=== PATIENT | female | born 1955 | race Caucasian/White ===

== ENCOUNTER → 2019-02-18 13:36 | Outpatient (CLI) | payer OTHER, SELFPAY ==
--- NOTE | 2019-02-18 | DI.MG.S_ITS ---
BILATERAL DIGITAL SCREENING MAMMOGRAM 3D/2D WITH CAD: 02/18/2019 CLINICAL: Routine screening. Comparison is made to exams dated: 01/07/2017 mammogram, 11/10/2014 mammogram, and 09/01/2012 mammogram - [facility]. The tissue of both breasts is heterogeneously dense. This may lower the sensitivity of mammography. Current study was also evaluated with a Computer Aided Detection (CAD) system. There is a benign calcification in the left breast. No significant masses, calcifications, or other findings are seen in either breast. There has been no significant interval change. IMPRESSION: There is no mammographic evidence of malignancy. A 1 year screening mammogram is recommended. This exam was interpreted at Station ID: [id number]. NOTE: For mammograms, a report in lay terms will be sent to the patient. Approximately 15% of breast malignancies will not be visualized mammographically. In the management of a palpable breast mass, a negative mammogram must not discourage biopsy of a clinically suspicious lesion. Electronically Signed By: Jaimie lock/penny:02/21/2019 16:57:56 letter sent: Normal Exam ACR BI-RADS Category 2: Benign Finding(s) 3342F
== END ==
PROVIDERS: PCP Family Medicine; Visit Provider Family Medicine
DX: Z12.31 Encounter for screening mammogram for malignant neoplasm of breast (principal)
CPT/HCPCS: 77063; 77067

== ENCOUNTER 2020-02-03 08:46 | Day surgery (SDC) | payer MEDICARE, SELFPAY ==
[2020-02-03 09:05] VITALS: BMI 20.9
[2020-02-03 09:13] VITALS: BP 104/65; PULSE 62; RESP 14; TEMP 37.7; O2SAT 99
[2020-02-03 09:14] VITALS: TEMP 36.3
[2020-02-03] MEDS: SODIUM CHLORIDE 0.9% 1,000 ML 200 ML IV (09:24)
--- NOTE | 2020-02-03 10:08 | PM.HP.1 ---
History of Present Illness History of Present Illness Date Patient Seen: 02/03/20 Time Patient Seen: 10:08 Chief complaint: [facility] [place] Narrative: This is a 64 yo woman with history of polyps found on colonoscopy six years ago, and an incomplete colonoscopy in June of this year, due to poor prep. She denies any melena or hematochezia. Denies unexplained abdominal pain, changes in bowel habit, or unexplained weight loss. Her mother was diagnosed with colon cancer in her early 70's. The patient is a partial quadriplegic. She tolerated conscious sedation with 3mg of versed and 75mcg of fentanyl in June. ROS: Partial quadriplegia, urinary incontinence, neurogenic bladder, Thirteen system review is otherwise negative other than as mentioned below and in HPI. PE: GENERAL: Well groomed and cooperative. Appears stated age. Answers questions promptly and appropriately. Vital signs noted. HENT: Normocephalic, atraumatic. Hearing intact. EYES: Conjunctiva pink, sclera white, no periorbital swelling. CARDIOVASCULAR: Regular rate. No pedal edema. RESPIRATORY: Non-tachypneic, breathing comfortably on room air. GASTROINTESTINAL: Abdomen soft and non-distended GENITALURINARY: No flank tenderness. MUSCULOSKELETAL: Equal tone and mass bilaterally. SKIN: Warm, dry, soft, appropriate color for ethnicity. No other lesions, rashes, or wounds. NEURO: Alert and Oriented X 3. Partial quadriplegia PSYCH: Appropriate affect and mood. Patient History Medical History Neurogenic bladder (Acute) Spinal cord injury (Acute) Wheelchair dependence (Acute) Family & Social History Social History: household members spouse Tobacco & Substance use: Smoking Status Never smoker alcohol intake current alcohol intake frequency 0-2 drinks per day Substance Use Type marijuana Meds Home Medications and Allergies Home Medications Medication Instructions Recorded Confirmed Type baclofen 10 mg PO DAILY 02/03/20 02/03/20 History cholecalciferol (vitamin D3) 25 mcg PO DAILY 02/03/20 02/03/20 History [Vitamin D3] cranberry 400 mg PO DAILY 02/03/20 02/03/20 History gabapentin 300 mg PO BID 02/03/20 02/03/20 History venlafaxine 37.5 mg PO DAILY 02/03/20 02/03/20 History Allergies Allergy/AdvReac Type Severity Reaction Status Date / Time No Known Drug Allergies Allergy Verified 02/03/20 08:57 Exam Vital Signs (past 8 hours): - 02/03/20 09:13 02/03/20 09:14 Temperature 99.8 F H 97.3 F L Pulse Rate 62 Respiratory Rate 14 Blood Pressure 104/65 Pulse Oximetry 99 Oxygen Delivery Method Room Air Assessment & Plan Assessment and plan (1) Personal history of colonic polyps: Status: Acute Assessment & Plan narrative: Risks and benefits of screening colonoscopy and possible polypectomy were discussed with the patient including risk of bleeding, perforation, need for additional procedures, risks of anesthesia. The patient desires to proceed with the colonoscopy procedure. COVID-19 COVID-19 status: Negative Result date/Date tested (Pos, Neg/Pending): 01/31/20 Time Spent With Patient Time with patient: 15-24 minutes Quality VTE Deep Vein Thrombosis/Pulmonary Embolism Present on Admission: No
--- NOTE | 2020-02-03 10:12 | PM.OP.ENDO ---
Operative Date/Time/Diagnoses Date of procedure: 02/03/20 Time of procedure: 10:12 Pre-op diagnosis: Personal history of colon polyps Post-op diagnosis: other (Very tortuous colon, external hemorrhoid remnant tags, otherwise normal exam) Procedure & Clinicians Study performed: Colonoscopy Procedural sedation performed by the endoscopist Indications: Personal history of colon polyps Surgeon: Tarsha Marques Procedure Notes SCOAP/Timeout: Performed Procedure in detail: The patient was brought to the room and placed in left lateral decubitus position with all bony prominences padded. A time-out was performed and then the patient was given procedural sedation starting with 2 mg of Versed and 50 mcg of fentanyl. Vitals were monitored throughout the procedure and remained stable. Once adequately sedated, the procedure was begun. A rectal exam was performed revealing external hemorrhoid remnant tags, normal tone. The colonoscope was then introduced to the rectum and advanced to the cecum in the usual fashion. The colon was very tortuous and required multiple maneuvers in order to safely reach the cecum. The cecum was identified by the appendiceal orifice, the mucosal tri-fold, and the ileocecal valve. The scope was then retracted while rotating side to side and examining each mucosal fold. At the conclusion of the procedure retroflexion was performed and small grade 1-2 internal hemorrhoids without stigmata of bleeding were seen. The scope was then withdrawn from the rectum the procedure was concluded. The patient tolerated the procedure well and was transferred to the PACU in stable condition. Scope withdrawal time: 10 Sedation minutes: 36 Findings: other findings (Very tortuous colon, adequate prep, external hemorrhoid remnant tags) Specimen(s): none sent Complications: none Impression: Tortuous colon, adequate prep, external hemorrhoid remnant tags Post-procedure Recommendations: Colonscopy in 5 years (Due to personal history of colon polyps, and primary relative with colon cancer) Follow up: as needed Disposition: PACU
[2020-02-03] MEDS: fentaNYL 250 MCG/5 ML INJ IV (10:14)
[2020-02-03] MEDS: MIDAZOLAM 5 MG/5 ML VIAL IV (10:15)
--- NOTE | 2020-02-03 11:51 | SUR.PHASEII ---
Assisted pt to dress.
[2020-02-03 11:56] VITALS: BP 89/52; PULSE 65; RESP 20; TEMP 36.7; O2SAT 98
== END 2020-02-03 11:59 | disposition home or self-care (01) ==
PROVIDERS: PCP Family Medicine; Referring Provider Surgery; Visit Provider Surgery
PROC: 0DJD8ZZ Inspection of Lower Intestinal Tract, Via Natural or Artificial Opening Endoscopic (ICD-10-PCS; CPT 45378; principal; 2020-02-03 10:00)
DX: K64.0 First degree hemorrhoids (principal); K64.4 Residual hemorrhoidal skin tags; Z80.0 Family history of malignant neoplasm of digestive organs; Z86.010 Personal history of colon polyps; Z12.11 Encounter for screening for malignant neoplasm of colon
CPT/HCPCS: G0105; 99152; 99153; J2250; J3010

== ENCOUNTER → 2020-04-06 10:22 | Outpatient (CLI) | payer MEDICARE, SELFPAY ==
--- NOTE | 2020-04-06 | DI.US.S_ITS ---
PROCEDURE: US RENAL COMPLETE INDICATIONS: Neuromuscular dysfunction of bladder, unspecified TECHNIQUE: Real-time scanning was performed of the kidneys and bladder, with image documentation. COMPARISON: [facility] Ultrasound, US, US RENAL COMPLETE, 09/02/2018, 14:17. FINDINGS: Kidneys: Kidneys are normal in size. Right kidney measures 9.7 cm long; left kidney measures 10.7 cm long. Right renal cortical thickness is 1.5 cm; left renal cortical thickness is 1.7 cm. Renal cortical echotexture is normal. No hydronephrosis. No suspicious solid mass lesions. Multiple nonobstructing renal stones are seen. Several simple appearing cysts are seen. The largest on the right measures up to 1.4 cm. The largest on the left measures up to 1.1 cm. Bladder: Pre-void bladder volume is 128 mL. Post-void residual not obtained, as the patient is paraplegic. Pre-void images demonstrate no intraluminal masses or stones. The bladder wall is thickened to 6 mm. On pre-void images, both ureteral jets are noted with color Doppler interrogation. (Of note, ureteral jets may not be detectable in up to 25% of cases due to insufficient differences in specific gravity between ureteral and bladder urine). Miscellaneous: No free pelvic fluid. IMPRESSION: The measured bladder volume at the time of the study is 128 cc. No hydronephrosis is seen. Mild bladder wall thickening is seen. Please correlate with underlying cystitis. Multiple nonobstructing bilateral renal stones are seen. Simple appearing bilateral renal cysts can be seen. Dictated by: Adebayo Campbell M.D. on 04/06/2020 at 10:53 Approved by: Adebayo Campbell M.D. on 04/06/2020 at 10:55
== END ==
PROVIDERS: PCP Family Medicine; Referring Provider Urology; Visit Provider Urology
DX: N31.9 Neuromuscular dysfunction of bladder, unspecified (principal); N20.0 Calculus of kidney; N28.1 Cyst of kidney, acquired
CPT/HCPCS: 76770

== ENCOUNTER → 2020-08-07 08:42 | Outpatient (CLI) | payer MEDICARE, SELFPAY | PROVIDERS: PCP Family Medicine; Referring Provider Family Medicine; Visit Provider Family Medicine | DX: Z78.0 Asymptomatic menopausal state (principal) | CPT/HCPCS: 77080 ==

== ENCOUNTER → 2021-02-14 09:18 | Outpatient (CLI) | payer MEDICARE, SELFPAY ==
--- NOTE | 2021-02-14 | DI.MG.S_ITS ---
BILATERAL DIGITAL SCREENING MAMMOGRAM 3D/2D WITH CAD: 02/14/2021 CLINICAL: Routine screening. Comparison is made to exams dated: 02/18/2019 mammogram - [facility], 01/07/2017 mammogram, 11/10/2014 mammogram, and 09/01/2012 mammogram - [facility]. The tissue of both breasts is heterogeneously dense. This may lower the sensitivity of mammography. Current study was also evaluated with a Computer Aided Detection (CAD) system. There is a benign calcification in the left breast. No significant masses, calcifications, or other findings are seen in either breast. There has been no significant interval change. IMPRESSION: BENIGN There is no mammographic evidence of malignancy. A 1 year screening mammogram is recommended. This exam was interpreted at Station ID: [id number]. NOTE: For mammograms, a report in lay terms will be sent to the patient. Approximately 15% of breast malignancies will not be visualized mammographically. In the management of a palpable breast mass, a negative mammogram must not discourage biopsy of a clinically suspicious lesion. Electronically Signed By: Jesse noe/penny:02/14/2021 11:24:03 letter sent: Normal Exam ACR BI-RADS Category 2: Benign Finding(s) 3342F
== END ==
PROVIDERS: PCP Family Medicine; Referring Provider Family Medicine; Visit Provider Family Medicine
DX: Z12.31 Encounter for screening mammogram for malignant neoplasm of breast (principal)
CPT/HCPCS: 77063; 77067

== ENCOUNTER → 2021-10-04 09:19 | Outpatient (CLI) | payer MEDICARE, SELFPAY ==
--- NOTE | 2021-10-04 | DI.US.S_ITS ---
PROCEDURE: US RENAL COMPLETE INDICATIONS: NEUROGENIC BLADDER TECHNIQUE: Real-time scanning was performed of the kidneys and bladder, with image documentation. COMPARISON: [facility], , US RENAL COMPLETE, 04/06/2020, 10:38. FINDINGS: Kidneys: Kidneys are normal in size. Right kidney measures 11.8 cm long; left kidney measures 11.9 cm long. Right renal cortical thickness is 1.3 cm; left renal cortical thickness is 1.6 cm. Renal cortical echotexture is normal. No hydronephrosis. Multiple punctate echogenic foci are noted within the calices suggesting the presence of nonobstructive stones. Bladder: Pre-void bladder volume is 102 mL the patient was unable to void. Pre-void images demonstrate no intraluminal masses or stones. On pre-void images, bilateral ureteral jets are noted with color Doppler interrogation. (Of note, ureteral jets may not be detectable in up to 25% of cases due to insufficient differences in specific gravity between ureteral and bladder urine). Miscellaneous: No free pelvic fluid. IMPRESSION: 1. No hydronephrosis. 2. The patient was unable to void during the procedure. Postvoid residual could not be measured. 3. Multiple echogenic punctate foci within the renal calices raising the suspicion for nonobstructing calculi. Medullary sponge kidney could also be considered in the differential diagnosis. Dictated by: Ramona Tello M.D. on 10/04/2021 at 11:11 Approved by: Ramona Tello M.D. on 10/04/2021 at 11:16
== END ==
PROVIDERS: PCP Family Medicine; Referring Provider Urology; Visit Provider Urology
DX: N31.9 Neuromuscular dysfunction of bladder, unspecified (principal)
CPT/HCPCS: 76770

== ENCOUNTER 2021-10-23 07:26 | Day surgery (SDC) | payer MEDICARE, SELFPAY ==
[2021-10-23] VITALS (7 sets, daily range): BP systolic 87–107; BP diastolic 51–69; PULSE 64–69; RESP 15–24; TEMP 36.2–36.8; O2SAT 94–98; BMI 19.5
--- NOTE | 2021-10-23 | PATH_ITS ---
[facility] Accession Number: [id number] . 01 Material submitted: . colon - RANDOM COLON BIOPSIES . 01 Clinical history: . SDC NONINFECTIVE GASTROINTERITIS AND COLITIS, UNSPECIFIED DIARRHEA, UNSPECIFIED . 01 Diagnosis: Random Colon, Biopsies: Colonic mucosa with mild nonspecific hemorrhage and congestion. No evidence of colitis. MRV 10/25/2021 1338 Local . 01 Comment: While the histologic features are nonspecific, bowel preparation artifact is a consideration. . 01 Electronically signed: . Ashley Magallon MD, Pathologist NPI- [id number] . 01 Gross description: . RANDOM COLON BIOPSIES: Received in formalin are 4 fragment(s) of gill, soft tissue measuring 0.3 x 0.2 x 0.1 cm to 0.1 x 0.1 x 0.1 cm submitted entirely in 1 cassette(s) /CPE 10/24/2021 0905 Local . 01 Pathologist provided ICD-10: R85.7, K52.9, R19.7 . 01 CPT . 885642 Specimen Comment: A courtesy copy of this report has been sent to [phone] Performed at: 01 [facility] [address] [place] [address] [address], [place], [place] [id number] MD Dalton Owusu MD Phone: [phone]
--- NOTE | 2021-10-23 07:41 | SUR.PREOP ---
Patient reported that prep was inadequate. Alix Hameed RN spoke with patient and called Dr. Liam. Orders received.
[2021-10-23] MEDS: FLEETS ENEMA 1 EACH PR (08:05)
--- NOTE | 2021-10-23 08:11 | PM.HP.1 ---
History of Present Illness History of Present Illness Date Patient Seen: 10/23/21 Time Patient Seen: 08:11 Chief complaint: sdc Narrative: I reviewed Dr. Du's recent note from August of this year. Diarrhea has persisted intermittently for the last 5-6 months. Patient History Medical History Neurogenic bladder Spinal cord injury Wheelchair dependence Family & Social History Social History: household members spouse Tobacco & Substance use: Smoking Status Never smoker alcohol intake current alcohol intake frequency 0-2 drinks per day Substance Use Type marijuana Meds Home Medications and Allergies Home Medications Medication Instructions Recorded Confirmed Type baclofen 10 mg tablet 10 mg PO TID 02/03/20 10/23/21 History cholecalciferol (vitamin D3) 25 25 mcg PO DAILY 02/03/20 10/23/21 History mcg (1,000 unit) tablet (Vitamin D3) cranberry 400 mg capsule 400 mg PO DAILY 02/03/20 10/23/21 History gabapentin 300 mg capsule 300 mg PO BID 02/03/20 10/23/21 History venlafaxine 37.5 mg 37.5 mg PO DAILY 02/03/20 10/23/21 History capsule,extended release 24 hr psyllium 500 mg capsule 2,500 g PO BID 10/23/21 10/23/21 History Allergies Allergy/AdvReac Type Severity Reaction Status Date / Time amoxicillin [From Augmentin] AdvReac Mild Diarrhea Verified 10/23/21 08:09 clavulanic acid AdvReac Mild Diarrhea Verified 10/23/21 08:09 [From Augmentin] Review of Systems Review of Systems ROS: Yes All systems reviewed with the patient and are negative except as otherwise documented Exam Const General: cooperative HENMT Head: normal to inspection Eyes General: appearance normal, both eyes and all related structures Neck Neck: normal visual inspection Chest Chest: normal inspection of the chest Resp Effort & Inspection: normal respiratory effort Cardio Rate: regular rate GI Inspection: normal to inspection Skin General: no rashes or lesions noted Neuro General: patient alert and patient awake Extrem General: edema Psych Appearance: grossly normal Assessment & Plan Assessment & Plan narrative: 66-year-old female with incomplete quadriplegia and intermittent diarrhea. Repeat diagnostic colonoscopy is pursued today. Time Spent With Patient Critical Care time: I spent a total of [] minutes of critical care time on this patient's care today; this time is exclusive of procedural time.
--- NOTE | 2021-10-23 08:18 | PM.PREOP ---
Pre-operative Note COVID-19 COVID-19 status: Negative Result date/Date tested (Pos, Neg/Pending): 10/21/21 Criteria for continued procedure: Possibility delay results in more complex future surgery or treatment Interval Note History & Physical reviewed/Exam performed by Physician: Yes Changes to H&P: No ASA Class (for procedural sedation): III
[2021-10-23] MEDS: SODIUM CHLORIDE 0.9% 1,000 ML 125 ML IV (08:36)
--- NOTE | 2021-10-23 09:31 | PM.OP.COLON ---
Operative Date/Time/Diagnoses Date of procedure: 10/23/21 Time of procedure: 09:31 Pre-op diagnosis: Unexplained diarrhea Post-op diagnosis: same Procedure & Clinicians Same procedure as scheduled: Yes Indications: Unexplained diarrhea Surgeon: Sean Lima Procedure Notes SCOAP/Timeout: Done Procedure in detail: After the risks and benefits were explained, written and verbal informed consent was obtained. The patient was brought into the procedure room and placed into the left lateral decubitus position. Please see nurse cut out press operator notes for sedation details. Digital rectal examination was accomplished. The scope was introduced into the patient and advanced under direct visualization to the transverse colon. There was copious solid formed stool at this location about 55 cm from the anal verge. I did not elect to attempt further advancement of the scope. The scope was slowly withdrawn to carefully examine the mucosa for any defects or lesions. Comprehensive imaging was accomplished throughout the rectum including the dentate line. The colon was decompressed, the scope was then removed from the patient who tolerated the procedure well. Bowel prep poor Pediatric colonoscope Scope withdrawal time: Not applicable Sedation minutes: 7 Complications: none Impression: The patient had formed solid stool found spontaneously evacuated and per rectum after sedation had begun despite an extra Fleet's enema this morning. Digital rectal exam disclosed grade 3 and grade 4 nonbleeding nonthrombosed hemorrhoids. The scope encountered more formed stool debris in the rectum. I was easily able to navigate beyond this and scattered formed stool debris was seen in various locations all the way up to a significant volume of stool debris at around 55 cm from the anal verge. I therefore elected to avoid further advancement of the scope. My clinical suspicion is that the patient has been experiencing fecal loading and overflow related diarrhea. Nevertheless, I took random colon biopsies from the left colon for exclusion of microscopic colitis. There was no macroscopic colitis evident but the mucosa appeared just slightly erythematous throughout. I suspect this may be a manifestation of stool stasis induced changes. No significant polyps or mass lesions were appreciated throughout the left colon. Endoscopic diagnosis 1. No evidence of macroscopic colitis 2. Grade 3 and grade 4 hemorrhoids 3. Incomplete colonoscopy secondary to suboptimal prep Post-procedure Plan for aftercare: 1. Await histopathology. 2. Initiate aggressive bowel regimen with plenty a dietary roughage and even supplemental fiber as before. 3. Consider MiraLax as needed. Disposition: PACU
--- NOTE | 2021-10-23 10:51 | SUR.PHASEII ---
Patient to OPD, HOB elevated, water given. Angy skin care for liquid/stool. Assisted patient with dressing. Spouse assisted her to the bathroom where she stated that she had a bowel movement. Pt attempted self cath but felt that she didn't really need to void. No urine return. States that she has supplies in the car and will cath again later.
== END 2021-10-23 10:30 | disposition home or self-care (01) ==
PROVIDERS: PCP Family Medicine; Referring Provider Internal Medicine Gastroenterology; Visit Provider Internal Medicine Gastroenterology
PROC: 0DJD8ZZ Inspection of Lower Intestinal Tract, Via Natural or Artificial Opening Endoscopic (ICD-10-PCS; CPT 45378; principal; 2021-10-23 08:00)
DX: R19.7 Diarrhea, unspecified (principal); K64.3 Fourth degree hemorrhoids; R85.7 Abnormal histological findings in specimens from digestive organs and abdominal cavity
CPT/HCPCS: 45380; J2704

== ENCOUNTER → 2022-10-06 07:31 | Outpatient (CLI) | payer MEDICARE, SELFPAY ==
--- NOTE | 2022-10-06 | DI.US.S_ITS ---
PROCEDURE: US RENAL COMPLETE INDICATIONS: NEUROGENIC BLADDER TECHNIQUE: Real-time scanning was performed of the kidneys and bladder, with image documentation. COMPARISON: [facility], US, US RENAL COMPLETE, 10/04/2021, 9:44. FINDINGS: Kidneys: Kidneys are normal in size. Right kidney measures 11.7 cm long; left kidney measures 10.6 cm long. Right renal cortical thickness is 1.4 cm; left renal cortical thickness is 1.6 cm. Overall echogenicity is within normal limits. There are scattered punctate foci within the renal cortex. Echogenic foci in the region of renal pyramids. No hydronephrosis. Right kidney stone measuring 0.4 cm. Left kidney stone measuring 0.4 cm. Right mid kidney hypoechoic cyst measuring 1.2 cm, unchanged. Presumed adjacent calcification. Inferior left kidney cyst measuring 1 cm. Bladder: Right ureteral jet is seen. Left ureteral jet is not seen. Bladder has a somewhat trabeculated appearance. Bladder volume 72 cc. Miscellaneous: No free pelvic fluid. IMPRESSION: 1. No hydronephrosis. 2. Small nonobstructing kidney stones. Possible medullary sponge kidneys. 3. Small renal cysts. The cyst in the right kidney may be complicated with rim calcification. Low suspicion. CT KUB or renal protocol CT may be helpful for further evaluation. Dictated by: Jesse Estevez M.D. on 10/06/2022 at 10:49 Approved by: Jesse Estevez M.D. on 10/06/2022 at 10:58
== END ==
PROVIDERS: PCP Family Medicine; Referring Provider Urology; Visit Provider Urology
DX: N31.9 Neuromuscular dysfunction of bladder, unspecified (principal); N20.0 Calculus of kidney; N28.1 Cyst of kidney, acquired
CPT/HCPCS: 76770

== ENCOUNTER → 2023-03-30 15:34 | Outpatient (CLI) | payer MEDICARE, SELFPAY ==
--- NOTE | 2023-03-30 | DI.MG.S_ITS ---
BILATERAL DIGITAL SCREENING MAMMOGRAM 3D/2D WITH CAD: 03/30/2023 CLINICAL: Routine screening. Comparison is made to exams dated: 02/14/2021 mammogram, 02/18/2019 mammogram - [facility], and 01/07/2017 mammogram - [facility]. Both breasts are heterogeneously dense, which may obscure small masses (category c / 51-75% glandular tissue). Current study was also evaluated with a Computer Aided Detection (CAD) system. There is a benign calcification in the left breast. No significant masses, calcifications, or other findings are seen in either breast. There has been no significant interval change. IMPRESSION: BENIGN There is no mammographic evidence of malignancy. A 1 year screening mammogram is recommended. Based on the Tyrer Cuzick model (a risk assessment model) the patient's lifetime risk is 9.0% and her 10 year risk is 4.8%. According to the ACR, ACS, and NCCN guidelines, an annual breast MRI exam along with mammogram is recommended if the patient's lifetime risk is 20% or greater. This exam was interpreted at Station ID: [id number]. NOTE: For mammograms, a report in lay terms will be sent to the patient. Approximately 15% of breast malignancies will not be visualized mammographically. In the management of a palpable breast mass, a negative mammogram must not discourage biopsy of a clinically suspicious lesion. Electronically Signed By: Jesse noe/penny:03/31/2023 08:53:04 letter sent: Normal Exam ACR BI-RADS Category 2: Benign Finding(s) 3342F
== END ==
PROVIDERS: PCP Family Medicine; Referring Provider Family Medicine; Visit Provider Family Medicine
DX: Z12.31 Encounter for screening mammogram for malignant neoplasm of breast (principal)
CPT/HCPCS: 77063; 77067

== ENCOUNTER → 2025-01-18 12:09 | Outpatient (CLI) | payer OTHER, SELFPAY ==
--- NOTE | 2025-01-18 12:12 | DI.MG.S_ITS ---
MM screening mammo BI: 01/18/2025. BI-RADS: 2 CLINICAL: 69-year old female for bilateral screening mammogram. Tyrer-Cuzick lifetime risk of 8.6%. No personal or first-degree family history of breast cancer. Current reported family history of breast cancer: paternal aunt. PRIOR EXAMS 03/30/2023, 02/14/2021, 02/18/2019. MAMMOGRAPHY TECHNIQUE: 2D and 3D (tomosynthesis) digital mammographic views obtained, with additional images as needed for full coverage. Current study was also evaluated with a Computer Aided Detection (CAD) system. DENSITY C. The breasts are heterogeneously dense, which may obscure small masses. MAMMOGRAPHY FINDINGS Right: No suspicious mass, asymmetry, microcalcification, or other abnormality seen. Left: Benign-appearing calcification noted on the left. There are no suspicious masses, calcifications, or other findings in the breast. IMPRESSION: Right * No evidence of malignancy. Left * No evidence of malignancy with benign findings. RECOMMENDATIONS Bilateral * Annual screening mammography. OVERALL ASSESSMENT CATEGORY BI-RADS-2: Benign. The [employer] recommends annual screening mammography beginning at age 40 for women with average risk of breast cancer. ELECTRONICALLY SIGNED: Rosa Aggarwal M.D. on 01/18/2025 at 04:22:57 PM PT Interpreting Station ID: [id number]
== END ==
PROVIDERS: PCP Family Medicine; Referring Provider Family Medicine; Visit Provider Family Medicine
DX: Z12.31 Encounter for screening mammogram for malignant neoplasm of breast (principal); R92.333 Mammographic heterogeneous density, bilateral breasts; Z80.3 Family history of malignant neoplasm of breast
CPT/HCPCS: 77063; 77067